=== PATIENT | male | born 1935 | race Caucasian/White ===

== ENCOUNTER 2018-03-12 07:09 | Inpatient (IN) | payer MEDICARE, BC ==
[~2018-03-12] VITALS: Ht 172.7 cm; Wt 71.0 kg
[~2018-03-12 07:09] MED LIST: CLINDAMYCIN 150 MG/ML, 6ML ONE; ROPIvacaine/PF 0.5%, 30 ML ONE
[2018-03-12] MEDS ORDERED: FENTANYL PF 250 MCG/5ML ONE (07:46)
[2018-03-12 08:02] VITALS: BP 131/81
[2018-03-12] MEDS ORDERED: LISI1TAB3 PO (08:17)
[2018-03-12] MEDS ORDERED: MULT1TAB13 PO (08:17)
[2018-03-12] MEDS ORDERED: ATOR10TA PO (08:17)
[2018-03-12] MEDS ORDERED: ALLO300T PO (08:17)
[2018-03-12] MEDS ORDERED: ASPI-496 PO (08:17)
[2018-03-12] MEDS ORDERED: PROPOFOL 10 MG/ML, 20ML ONE (08:24)
[2018-03-12] MEDS ORDERED: CEFAZOLIN 1,000 MG ONE ×2 (08:25)
[2018-03-12] MEDS ORDERED: PHENYLEPHRINE 10 MG/ML ONE (08:25)
[2018-03-12] MEDS ORDERED: SUCCINYLCHOLINE 20 MG/ML, 10ML ONE (08:25)
[2018-03-12] MEDS ORDERED: EPHEDRINE 50 MG/ML, 1ML ONE (08:25)
[2018-03-12] MEDS ORDERED: LACTATED RINGERS 1,000 ML IV SCH (08:27)
[2018-03-12] MEDS ORDERED: ACETAMINOPHEN 325 MG TABLET PO PRN ×2 (08:30→09:00)
[2018-03-12] MEDS ORDERED: PROMETHAZINE 25 MG/ML, 1ML IV PRN (08:30)
[2018-03-12] MEDS ORDERED: OXYcodone 5 MG/5 ML ORAL.SOL UDC PO PRN (08:30)
[2018-03-12] MEDS ORDERED: FENTANYL PF 100 MCG/2ML IV PRN (08:30)
[2018-03-12] MEDS ORDERED: DOCUSATE 100 MG CAPSULE PO SCH (09:00)
[2018-03-12] MEDS ORDERED: MAGNESIUM HYDROXIDE 8%, 30ML UDC PO PRN (09:00)
[2018-03-12] MEDS ORDERED: PROMETHAZINE 25 MG/ML, 1ML IM PRN (09:00)
[2018-03-12] MEDS: CEFAZOLIN PMX 1GM/50ML 50 ML IVPB SCH ×2 (09:00→17:00)
[2018-03-12] MEDS ORDERED: LISINOPRIL 10 MG TABLET PO SCH ×2 (09:00→12:51)
[2018-03-12] MEDS: HYDROcodone/APAP 5/325 TABLET PO SCH ×3 (09:00→17:00)
[2018-03-12] MEDS ORDERED: MULTIVITAMINS/MINERALS TABLET PO SCH (09:00)
[2018-03-12] MEDS ORDERED: ALLOPURINOL 100 MG TABLET PO SCH (09:00)
[2018-03-12] MEDS ORDERED: ONDANSETRON 2MG/ML, 2ML IV PRN (09:00)
[2018-03-12] MEDS ORDERED: BISACODYL 10 MG SUPP PR PRN (09:00)
[2018-03-12] MEDS ORDERED: morphine SULFATE 10 MG/ML, 1ML IV PRN (09:00)
[2018-03-12] MEDS ORDERED: SENNA/DOCUSATE TABLET PO PRN (09:00)
[2018-03-12] MEDS ORDERED: ASPIRIN 81 MG TABLET EC PO SCH (09:00)
[2018-03-12 09:22] LABS: ALANINE AMINOTRANSFERASE 36 U/L (12-78); ALBUMIN 3.7 g/dL (3.4-5.0); ANION GAP 10 mmol/L (5-15); CALCIUM 9.1 mg/dL (8.5-10.1); CHLORIDE 100 mmol/L (98-107); CREATININE 1.22 mg/dL (0.7-1.3)
[2018-03-12 09:24] LABS: ALKALINE PHOSPHATASE 86 U/L (45-117); BILIRUBIN,TOTAL 0.6 mg/dL (0.2-1.0); TOTAL PROTEIN 7.8 g/dL (6.4-8.2)
[2018-03-12] MEDS ORDERED: SODIUM CHLORIDE 0.9% PF 10ML ONE (09:51)
[2018-03-12] MEDS ORDERED: OXYcodone 5 MG/5 ML ORAL.SOL UDC ONE (11:30)
[2018-03-12] MEDS ORDERED: ACETAMINOPHEN 650 MG/20.3 ML UDC ONE (11:30)
[2018-03-12] MEDS: D5%-0.45% NACL 1,000 ML IV SCH ×2 (11:30→17:04)
[2018-03-12 14:14] VITALS: BP 93/58
[2018-03-12] MEDS ORDERED: ATORVASTATIN 10 MG TABLET PO SCH (21:00)
[2018-03-13] MEDS ORDERED: HYDROCHLOROTHIAZIDE 12.5 MG CAPSULE PO SCH (09:00)
== END 2018-03-12 17:09 | disposition home or self-care (01) | DRG 483 ==
LOC: ORIP 07:09 → INTOOBSV 07:09 → OBSVTOIN 08:00 → 4NOR 12:29
PROVIDERS: ADMIT Orthopaedic Surgery; ATTEND Orthopaedic Surgery
PROC: 0RRK0JZ Replacement of Left Shoulder Joint with Synthetic Substitute, Open Approach (ICD-10-PCS; 2018-03-12)
PROC: 0LS40ZZ Reposition Left Upper Arm Tendon, Open Approach (ICD-10-PCS; principal; 2018-03-12 09:30)
DX: M19.012 Primary osteoarthritis, left shoulder (principal); M75.22 Bicipital tendinitis, left shoulder; I10 Essential (primary) hypertension; M10.9 Gout, unspecified; J44.9 Chronic obstructive pulmonary disease, unspecified; Z88.2 Allergy status to sulfonamides; Z79.899 Other long term (current) drug therapy; Z82.49 Family history of ischemic heart disease and other diseases of the circulatory system; Z87.891 Personal history of nicotine dependence
CPT/HCPCS: 36415; 80053; 93005; C1713; C1776; G0378; J0690; J2704; J2795; J3010; J0330; J2370; J7120